=== PATIENT | female | born 1970 | race Caucasian/White ===

== ENCOUNTER 2017-11-21 12:01 | Observation (INO) ==
--- NOTE | 2017-11-21 12:31 | Emergency Department Note ---
Disposition Clinical Impression: Cerebrovascular accident Qualifiers: CVA mechanism: unspecified Qualified Code(s): I63.9 - Cerebral infarction, unspecified Disposition: Admitted As Inpatient Condition: Fair Forms: ED Satisfaction Letter Time of Disposition: 14:42 Neuro HPI - General Chief Complaint: ED Neuro Symptoms/Deficit Stated Complaint: LUE/L facial numbness/weakness (1113), dizzy, CP Time Seen by Provider: 11/21/17 12:22 Source: patient Mode of arrival: private vehicle Limitations: no limitations Nursing Notes Reviewed: Yes Vital Signs Reviewed: Yes - History of Present Illness HPI Narrative: Patient states symptoms started approximately 2 hours prior to arrival. She initially developed dizziness and then loss of hearing. One hour prior to arrival she developed left-sided weakness described as numbness and tingling affecting her left upper extremity and lower extremity and now her left face. No aphasia or dysarthria. No ataxia. No headache. She checked her blood pressure and it was 164/98. She has a history of hypertension but does not take antihypertensive medications Symptom Onset Unknown: Yes Location: left face, left arm, left leg History of same: No Quality: weakness, numbness, tingling Symptoms Improving: No Improves with: none Worsens with: none Context: sudden onset On Anticoagulants: No Associated symptoms: Reports: denies other symptoms Treatments Prior to Arrival: none - Related Data Home Medications: Previous Rx's Medication Instructions Recorded Levofloxacin [Levaquin] 500 mg PO DAILY #10 tablet 07/21/15 Allergies/Adverse Reactions: Allergies Allergy/AdvReac Type Severity Reaction Status Date / Time aspirin [ASA] AdvReac Nausea Verified 05/25/16 15:53 All systems ED: reviewed and negative except as stated. Constitutional: Reports: as per HPI Eyes: Reports: as per HPI ENT ED: Reports: as per HPI Cardiovascular: Reports: as per HPI Respiratory: Reports: as per HPI Gastrointestinal: Reports: as per HPI Genitourinary: Reports: as per HPI Musculoskeletal: Reports: as per HPI Integumentary: Reports: as per HPI Neurological: Reports: weakness, numbness, paresthesias, other (Loss of hearing , dizziness) Psychiatric: Reports: as per HPI Endocrine: Reports: as per HPI Hematological/Lymphatic: Reports: as per HPI Allergic/Immunologic: Reports: as per HPI Past Medical History - Past Medical History Source: patient Medical history: Reports: arthritis, asthma, fibromyalgia Psychiatric history: Reports: no psych history RESOURCE SPECIALIST history: Reports: no RESOURCE SPECIALIST history - Social History Smoking Status: Never smoker Smokeless Tobacco Status: No Alcohol use: Reports: none Drug use: Reports: none Physical Exam - General Limitations: no limitations General appearance: alert, in no apparent distress - Head Head exam: atraumatic - Eye Eye exam: Present: normal appearance, PERRL - ENT ENT exam: normal exam - Neck Neck exam: Present: normal inspection, full ROM - Chest Chest inspection: Present: normal inspection, symmetric chest wall rise - Respiratory Respiratory exam: Present: normal lung sounds bilaterally - Cardiovascular Cardiovascular exam: Present: normal rhythm, tachycardia, normal heart sounds - Rectal Exam Rectal exam: Present: deferred - Extremities Exam Extremities exam: Present: normal inspection - Neurological Exam Neurological exam: Present: alert, oriented X3, CN II-XII intact, other (No facial droop. Tongue midline. Speech fluent. No pronator drift. 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 No leg drift. NIH is 0) - Psychiatric Psychiatric exam: Present: normal affect, normal mood - Skin Skin exam: Present: warm, dry, intact Course Course Narrative: Patient presents with neurologic symptoms including left upper extremity and left lower extremity numbness tingling and weakness. Symptoms started 2 hours ago. NIH 0 per my exam. Stroke alert activated - Reevaluation(s) Reevaluation #1: CT head negative Reevaluation #2: Dr Cardona from [facility] telemedicine neurology has completed his consultation. He recommends against TPA. He recommends a CTA head and neck with admission to our facility should testing be negative. NIH score was 1 for numbness. Patient not a TPA candidate due to low NIH score Reevaluation #3: Patient resting comfortable. Test results discussed. No changes in neurologic exam. Vital Signs Temperature 98.3 F 11/21/17 12:03 Pulse Rate 100 11/21/17 12:03 Respiratory Rate 16 11/21/17 12:03 Blood Pressure 163/101 11/21/17 12:03 O2 Sat by Pulse Oximetry 100 11/21/17 12:03 Temperature 98.3 F 11/21/17 12:03 Pulse Rate 84 11/21/17 14:29 Respiratory Rate 18 11/21/17 14:29 Blood Pressure 143/84 11/21/17 14:29 O2 Sat by Pulse Oximetry 99 11/21/17 14:29 Oxygen Delivery Oxygen Delivery Room Air Neuro Symptoms/Deficit - Lab Data Lab results reviewed: Yes I reviewed the patient's lab results. Result diagrams: 11/21/17 12:43 11/21/17 12:43 Lab Results 11/21/17 11/21/17 11/21/17 Range/Units 12:07 12:43 12:43 WBC 6.4 (4.3-11.1) K/mcL RBC 4.44 (3.82-4.97) M/mcL Hgb 14.4 (11.5-15.4) g/dL Hct 40.1 (35.3-44.9) % MCV 90.3 (83.0-100.0) fL MCH 32.4 (28.0-33.3) pg MCHC 35.9 H (31.6-35.5) g/dL RDW 12.1 (11.5-14.5) % Plt Count 187 (140-400) K/mcL MPV 10.9 (9.4-12.4) fL Immature Gran % 0.3 (0-4) % Seg Neutrophils % 61.6 % Lymphocytes % 32.8 % Monocytes % 4.5 % Eosinophils % 0.6 % Basophils % 0.2 % Neutrophils # 4.0 (1.6-8.9) K/mcL Lymphocytes # 2.1 (0.6-4.6) K/mcL Monocytes # 0.3 (0.0-1.3) K/mcL Eosinophils # 0.0 (0.0-0.6) K/mcL Basophils # 0.0 (0.0-0.2) K/mcL PT 10.1 (9.4-12.1) Seconds INR 0.9 APTT 32.6 (26.0-36.0) Seconds Sodium (136-145) mEq/L Potassium (3.5-5.1) mEq/L Chloride (98-107) mEq/L Carbon Dioxide (23-29) mEq/L BUN (6-20) mg/dL Creatinine (0.60-1.20) mg/dL Est GFR ( Amer) (> 60) Est GFR (Non-Af Amer) (> 60) BUN/Creatinine Ratio (6-26) Glucose (70-105) mg/dL POC Glucose 94 (70-99) mg/dL Calculated Osmolality (280-300) Calcium (8.6-10.3) mg/dL Troponin I (< 0.04) ng/mL 11/21/17 Range/Units 12:43 WBC (4.3-11.1) K/mcL RBC (3.82-4.97) M/mcL Hgb (11.5-15.4) g/dL Hct (35.3-44.9) % MCV (83.0-100.0) fL MCH (28.0-33.3) pg MCHC (31.6-35.5) g/dL RDW (11.5-14.5) % Plt Count (140-400) K/mcL MPV (9.4-12.4) fL Immature Gran % (0-4) % Seg Neutrophils % % Lymphocytes % % Monocytes % % Eosinophils % % Basophils % % Neutrophils # (1.6-8.9) K/mcL Lymphocytes # (0.6-4.6) K/mcL Monocytes # (0.0-1.3) K/mcL Eosinophils # (0.0-0.6) K/mcL Basophils # (0.0-0.2) K/mcL PT (9.4-12.1) Seconds INR APTT (26.0-36.0) Seconds Sodium 141 (136-145) mEq/L Potassium 3.7 (3.5-5.1) mEq/L Chloride 106 (98-107) mEq/L Carbon Dioxide 23 (23-29) mEq/L BUN 13 (6-20) mg/dL Creatinine 0.75 (0.60-1.20) mg/dL Est GFR ( Amer) > 60 (> 60) Est GFR (Non-Af Amer) > 60 (> 60) BUN/Creatinine Ratio 17 (6-26) Glucose 93 (70-105) mg/dL POC Glucose (70-99) mg/dL Calculated Osmolality 292 (280-300) Calcium 8.9 (8.6-10.3) mg/dL Troponin I < 0.03 (< 0.04) ng/mL - Radiology Data Radiology results reviewed: Yes I reviewed the patient's radiology results. - EKG Data EKG attestation: Yes I reviewed and interpreted this EKG. EKG results narrative: Normal sinus rhythm rate 83 OH 106 QRS 88 QT/QTC 369/[address] segment elevation. Study compared to previous dated 05/25/16 TPA Checklist - Source Information Source: Patient - Eligibilty for IV tPA 1. LKW equal to or less than 4.5 hours be before treatment: Yes 2. Clinical diagnosis of ischemic stroke causing deficit: Yes 3. Age 18 years or older: Yes - Contraindications 4. Evidence of intracranial hemorrhage on pretreatment CT: No 5. Presentation suggests subarachnoid hem, even if CT normal: No 6. CT shows multilobar infarction: No 7. Known neoplasm, arteriovenous malformation, or aneurysm: No 8. Significant head trauma (w/ LOC) or CVA in last 3 months: No 9. BP elevated (systolic > 185 or diastolic > 110): No 10. Abnormal Blood Glucose (<50 or >400mg/dl): No 11. Active internal bleeding [PM.TPA15]: No 12. Known bleeding risk (including; not limited to 13-15): No 13. Heparin/argatroban/bivalirudin w/in 48hrs & PTT > normal: No 14. Platelet count less than 100,000/MM3: No 15. Current or recent use of anticoagualants (see protocol): No - Warnings/Precautions Considerations 16. Prior ischemic stroke within last 3 months: No 17. Recent history of intracranial hemorrhage: No 18. : No 19. Current/recent use Effient (7 days) or Brilinta (5 days): No 20. Arterial puncture at non compressible site or LP >7days: No 21. Major surgery or serious trauma in last 14 days: No 22. GI or urinary tract hemorrhage in last 21 days: No 23. KS involving left anterior myocardium in last 3 months: No 24. Suspected or known infective endocarditis/pericarditis: No - LKW: 3-4.5 hrs Add. Warnings/Precautions 21. oral anticoag other than warfarin regardles of last dose: No Patient/family understanding: The patient/family members have been counseled and understood the risk, benefit , and alternatives of treatment. Critical Care Time Critical Care Time: Yes Total Critical Care Time: 30 Attestation: The high probability of a clinically significant, sudden or life threatening deterioration of the [] system(s) required my full and direct attention, intervention and personal management. The aggregate critical care time was [] minutes. This time is in addition to time spent performing reported procedures but includes the following: [] Data Review and interpretation [] Patient assessment and monitoring of vital signs [] Documentation [] Medication orders and management
[2017-11-21] MEDS ORDERED: Alteplase (Activase) 6 MG in EMPTY BAG 1 EACH IVP ONE (12:46)
[2017-11-21] MEDS ORDERED: Alteplase 100 MG/100 mL Vial Pharmacy Waste ONE (12:46)
[2017-11-21] MEDS ORDERED: ALTEPLASE IVPB ONE (12:46)
[2017-11-21 12:55] LABS: Eosinophils % 0.6 %; Hematocrit 40.1 % (35.3-44.9); Hemoglobin 14.4 g/dL (11.5-15.4); Immature Granulocytes % 0.3 % (0-4); Lymphocytes % 32.8 %; Mean Corpuscular HGB Conc 35.9 g/dL (31.6-35.5); Mean Corpuscular Hemoglobin 32.4 pg (28.0-33.3); Mean Corpuscular Volume 90.3 fL (83.0-100.0); Mean Platelet Volume 10.9 fL (9.4-12.4); Monocytes % 4.5 %; Platelet Count 187 K/mcL (140-400); Red Blood Count 4.44 M/mcL (3.82-4.97); Red Cell Distribution Width 12.1 % (11.5-14.5); Segmented Neutrophils % 61.6 %
[2017-11-21 12:56] LABS: Basophils % 0.2 %; Lymphocytes # 2.1 K/mcL (0.6-4.6); Monocytes # 0.3 K/mcL (0.0-1.3)
[2017-11-21 13:04] LABS: INR 0.9; Prothrombin Time 10.1 Seconds (9.4-12.1)
[2017-11-21 13:07] LABS: Activated Partial Thrombo Time 32.6 Seconds (26.0-36.0)
[2017-11-21 13:26] LABS: Troponin I < 0.03 ng/mL (< 0.04)
[2017-11-21] MEDS ORDERED: Isovue-370 500 ML INFUS..BTL IV ONE (13:28)
[2017-11-21 13:52] LABS: BUN/Creatinine Ratio 17 (6-26); Blood Urea Nitrogen 13 mg/dL (6-20); Calcium 8.9 mg/dL (8.6-10.3); Carbon Dioxide 23 mEq/L (23-29); Chloride 106 mEq/L (98-107); Glucose 93 mg/dL (70-105); Osmolality,Calculated 292 (280-300); Potassium 3.7 mEq/L (3.5-5.1); Sodium 141 mEq/L (136-145); eGFR For African Americans > 60 (> 60); eGFR For Non-African Americans > 60 (> 60)
--- NOTE | 2017-11-21 22:10 | Internal Med History&Physical ---
<Elie Hsu - Last Filed: 11/22/17 00:19> Date of Encounter: 11/22/17 Time of Encounter: 08:15 Internal Medicine - H&P: HPI Chief complaint: left sided weakness/numbness Admitted From: Home Plans for Post Hospital Care: Home History of present illness: Ms. Jack is a 47 year old female w/ pmh of previouslyl high TSH untreated, high blood pressure presents with acute onset of left face, UE, and LE weakness , numbness, and tingling. 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 It felt like "a silent film". Within a minute she noticed, sudden onset of left sided wekness, numbness and tingling. She had her Blood pressure taken, and she recalled that it was ~160/105. Patient was recommended to come to [place] ED to be worked up for stroke. Patient was seen and examined around 8 pm, patient's symptoms had resolved besides mild tingling on her left side. Patient had not attempted to relieve symptoms, and denies exacerbating causes i.e movement, light, sound. Patient has associated chest heaviness that started when she was transferred from the ED to the floor. She states the pain is constant, is not relieved or worsened by taking deep breaths, position. Pain is not localized but is substernal. She has never had pain like this is the past. Patient does admit to having a lot of stress in her life recently, her son was hospitalized in the ICU at [facility] for new onset T1DM/DKA. Patients daniellehr also has T1DM. Patient a few months ago had a 40 lbs weight gain, and had an elevated TSH, and was about to be started on levothyroxine but had a second opinion from her PCP who instructed her not to start Rx. Patient has previously been told she has HTN but has not been treated for it. She was given a PRN medication which she has not taken in months. She could not recall what medication it was but thought it could be "clonidine or hydralazine". Patient has had peripheral neuropathy in her lower extremities for the last 5 years. Patient ddenies any other PMH. Patient denies leg swelling, fever, chills, night sweats, orthopnea, pnd, SOB on exertion, palpitations. Past Med Surg Social Fam HX - Past Medical History Medical history: arthritis, asthma, fibromyalgia Psychiatric history: no psych history - Social History Smoking Status: Never smoker Smokeless Tobacco Status: No Alcohol use: none Drug use: none Internal Medicine - H&P: Meds Albuterol Sulfate [Albuterol Inhaler] 1 - 2 puff IH Q4-6H PRN 11/21/17 [History] 3 Allergy/AdvReac Type Severity Reaction Status Date / Time aspirin [ASA] AdvReac Nausea Verified 05/25/16 15:53 All Systems PM: A 10-system review of systems was performed and is negative for pertinent findings except as documented above in the HPI. - Constitutional Constitutional: no chills, no fever(s), no falls, no night sweats - EENT Eyes: no change in vision, no discharge, no loss of peripheral vision, no loss of vision, no pain, no photophobia Ears: no ear discharge, no ear pain, no tinnitus Nose, mouth and throat: no dysphagia, no nasal discharge, no neck pain, no sore throat - Cardiovascular Cardiovascular ROS IM: no chest pain, no claudication, no diaphoresis, no dyspnea, no dyspnea on exertion, no edema, no irregular heart rhythm, no lightheadedness, no orthopnea, no palpitations, no paroxysmal nocturnal dyspnea , no syncope - Respiratory Respiratory: no cough, no dyspnea, no hemoptysis, no dyspnea on exertion, no wheezing, no snoring, no stridor, no pain on inspiration, no chest congestion, no excessive phlegm production, no change in phlegm color, no pain with cough - Gastrointestinal Gastrointestinal: no abdominal pain, no coffee ground emesis, no constipation, no cramping, no diarrhea, no hematemesis, no hematochezia, no melena, no nausea , no vomiting - Genitourinary Genitourinary: no change in urinary stream, no dysuria, no flank pain, no hematuria - Musculoskeletal Musculoskeletal ROS IM: no numbness, no tingling - Integumentary Integumentary IM: no rash, no unusual bruising - Neurological Neurological ROS: no confusion, no convulsions, no focal weakness, no numbness, no tingling, no tremor(s) - Hematologic/Lymphatic Hematologic/Lymphatic: no easy bruising - Constitutional Vitals: Temp Pulse Resp BP Pulse Ox 98.3 F 94 16 143/93 99 11/21/17 18:08 11/21/17 21:35 11/21/17 18:08 11/21/17 21:35 11/21/17 18:08 General appearance: Present: cooperative, A&O X 3, pleasant, no acute distress, answers questions appropriately - Head Head exam: Present: atraumatic, normocephalic - Eye Eye exam: Present: PERRL, conjuntiva pink, sclera anicteric Pupils: Present: PERRL - Neck Neck exam general surgery: Present: normal inspection, supple, trachea midline. Absent: lymphadenopathy, tenderness, nuchal rigidity, thyromegaly - Respiratory Respiratory exam: Present: CTAB. Absent: accessory muscle use, chest wall tenderness, decreased breath sounds, prolonged expiratory phase, rales, respiratory distress, rhonchi, stridor, wheezes - Cardiovascular Cardiovascular exam: Present: RRR. Absent: diastolic murmur, distant heart sounds, gallop, rubs, systolic murmur, tachycardia - GI/Abdominal GI/Abdominal exam: Present: normal bowel sounds, soft, no peritoneal signs. Absent: diminished bowel sounds, distended, firm, guarding, hernia, hepatomegaly , pulsatile mass, rebound, rigid, splenomegaly, tenderness - Extremities Exam Extremities exam: Present: warm, radial pulses palpable and symmetrical. Absent : calf tenderness, cyanotic, pedal edema - Neurological Exam Neurological exam: Present: alert, CN II-XII intact, oriented X3, reflexes normal, no focal deficits, strengths equal and symetr throughout. Absent: motor sensory deficit, pronater drift, facial droop, speech deficit - Skin Skin exam: Present: dry, intact Internal Med - H&P Results - Labs CBC & Chem 7: 11/21/17 12:43 11/21/17 12:43 - Assessment and plan (1) Left-sided weakness Current Visit: Yes Status: Acute Assessment and plan: Patient had stroke alert in ED. Neck CTA, head CTA, and Head CT came back negative. Stroke Alert physician believes patient could have had a TIA. symptoms resolved in ~6 hours. Will further workup for other causes. trop neg x1, glu WNL, bnp WNL, electrolytes WNL. ABCD2 score 5 - moderate risk for stroke. Continue NIHSS. - b12, CBC, CMP, Hba1c, TSH, lipids, - based off of ABCD2 score patient should have further workup of MRI and carotid U/S in the AM after further workup has returned. Consider consulting neuro - tele monitoring (2) Chest pain Current Visit: Yes Status: Acute Assessment and plan: trend trops, and ordered EKG Qualifiers: Qualified Code(s): R07.9 - Chest pain, unspecified (3) Hypothyroid Current Visit: Yes Status: Acute Assessment and plan: TSH came back ~9, starting levothyroxine. Qualifiers: Qualified Code(s): E03.9 - Hypothyroidism, unspecified - Time Spent With Patient Total time spent is greater than 50% in coordination of care (as documented) at patient's floor/unit and/or counseling patient: <Robert Marrero P - Last Filed: 11/22/17 07:52> Date of Encounter: 11/21/17 Time of Encounter: 21:00 Internal Medicine - H&P: HPI History of present illness: Ms. Jack is a 47 year old female All Systems PM: A 10-system review of systems was performed and is negative for pertinent findings except as documented above in the HPI. - Constitutional Vitals: Temp Pulse Resp BP Pulse Ox 98.1 F 73 13 122/80 97 11/22/17 06:53 11/22/17 06:53 11/22/17 06:53 11/22/17 06:53 11/22/17 06:53 Internal Med - H&P Results - Labs CBC & Chem 7: 11/22/17 06:59 11/22/17 06:59 Labs: Short CBC 11/22/17 Range/Units 06:59 WBC 4.7 (4.3-11.1) K/mcL Hgb 14.2 (11.5-15.4) g/dL Hct 41.0 (35.3-44.9) % Plt Count 184 (140-400) K/mcL Neutrophils # 2.5 (1.6-8.9) K/mcL BMP 11/22/17 06:59 Sodium 137 Potassium 3.8 Chloride 105 Carbon Dioxide 26 BUN 14 Creatinine 0.64 Glucose 105 Calcium 8.9 Cardiac Enzymes 11/22/17 Range/Units 06:59 Troponin I < 0.03 (< 0.04) ng/mL Liver Function 11/22/17 Range/Units 06:59 Total Bilirubin 0.6 (0.3-1.0) mg/dL AST 13 (13-39) Units/L ALT 8 (7-52) Units/L Alkaline Phosphatase 71 (34-104) Units/L Albumin 4.1 (3.5-5.7) g/dL - Attending Attestation I performed a history and physical examination of the patient on 11/21/17 and discussed his management with the resident. I reviewed the residents note and agree with the documented findings and plan of care. Briefly, patient admitted for CVA vs TIA. She presented with Left Side Numbness that started earlier today. Symptoms responded after transfer from ED. But now back with less intensity. She also has some chest pain. Questionable PMH of HTN, but no other risk factors. We will obtain MRI brain and carotid U/S and ECHO. We will allow permissive HTN. We will start aspirin 81 mg and lipitor. For chest pain, we will obtain repeat EKG and trend troponins. - Assessment and plan (1) Left-sided weakness Current Visit: Yes Status: Acute (2) Chest pain Current Visit: Yes Status: Acute Qualifiers: Qualified Code(s): R07.9 - Chest pain, unspecified (3) Hypothyroid Current Visit: Yes Status: Acute Qualifiers: Qualified Code(s): E03.9 - Hypothyroidism, unspecified - Time Spent With Patient Total time spent is greater than 50% in coordination of care (as documented) at patient's floor/unit and/or counseling patient:
[2017-11-21] MEDS ORDERED: Naloxone 0.4 MG/ML INJ IVP PRN (22:23)
[2017-11-21 23:03] LABS: Estimated Average Glucose 108 mg/dl; Hemoglobin A1C 5.4 %
[2017-11-21 23:14] LABS: Chol/HDL Ratio 4.3 (0-4.9)
[2017-11-21 23:26] LABS: Thyroid Stimulating Hormone 9.013 mcIU/mL (0.340-5.600)
[2017-11-22] MEDS ORDERED: Albuterol 2.5 MG/3 ML NEBULIZER IH PRN (06:17)
[2017-11-22 07:29] LABS: Basophils % 0.2 %; Eosinophils # 0.1 K/mcL (0.0-0.6); Eosinophils % 1.7 %; Hemoglobin 14.2 g/dL (11.5-15.4); Immature Granulocytes % 0.2 % (0-4); Lymphocytes # 1.8 K/mcL (0.6-4.6); Lymphocytes % 38.6 %; Mean Corpuscular HGB Conc 34.6 g/dL (31.6-35.5); Mean Corpuscular Hemoglobin 32.1 pg (28.0-33.3); Mean Corpuscular Volume 92.8 fL (83.0-100.0); Mean Platelet Volume 11.2 fL (9.4-12.4); Monocytes # 0.3 K/mcL (0.0-1.3); Monocytes % 6.8 %; Neutrophils # 2.5 K/mcL (1.6-8.9); Platelet Count 184 K/mcL (140-400); Red Blood Count 4.42 M/mcL (3.82-4.97); Red Cell Distribution Width 12.3 % (11.5-14.5); Segmented Neutrophils % 52.5 %
[2017-11-22 07:34] LABS: Prothrombin Time 10.8 Seconds (9.4-12.1)
[2017-11-22 07:37] LABS: Activated Partial Thrombo Time 32.2 Seconds (26.0-36.0)
[2017-11-22 07:46] LABS: Alanine Aminotransferase 8 Units/L (7-52); Albumin 4.1 g/dL (3.5-5.7); Albumin/Globulin Ratio 1.7 (1.1-2.2); Alkaline Phosphatase 71 Units/L (34-104); Aspartate Amino Transferase 13 Units/L (13-39); BUN/Creatinine Ratio 22 (6-26); Bilirubin,Total 0.6 mg/dL (0.3-1.0); Blood Urea Nitrogen 14 mg/dL (6-20); Calcium 8.9 mg/dL (8.6-10.3); Carbon Dioxide 26 mEq/L (23-29); Chloride 105 mEq/L (98-107); Globulin 2.4 g/dL (2.4-3.5); Glucose 105 mg/dL (70-105); Magnesium 1.8 mg/dL (1.6-2.6); Osmolality,Calculated 285 (280-300); Phosphorous 3.6 mg/dL (2.7-4.5); Potassium 3.8 mEq/L (3.5-5.1); Sodium 137 mEq/L (136-145); Total Protein 6.5 g/dL (6.4-8.9); eGFR For African Americans > 60 (> 60); eGFR For Non-African Americans > 60 (> 60)
--- NOTE | 2017-11-22 08:18 | Neurology - Consult Note ---
<JenAnyaSay - Last Filed: 11/22/17 08:28> Date of Encounter: 11/22/17 Time of Encounter: 08:13 Assessment and Plan (1) Left-sided weakness Status: Acute Only appreciable neurologic symptoms since presentation has been left-sided numbness. No weakness noted either by the ER physician or myself. CT of the head and CTA of the head and neck have been without acute findings. Carotid Doppler and MRI of the head are pending. Differential includes TIA, though suspicion is low considering few risk factors , vs. acephalgic migraine. Patient also notes significant stressors in her life, so a stress reaction is also a possibility. If doppler and MRI are negative, patient can be discharged from a neurologic standpoint and follow up with primary care physician. (2) Left sided numbness Status: Acute See plan of care above. History of Present Illness Chief complaint: left-sided weakness, sudden hearing loss HPI: Clarissa Jack is a 47 year old female with past medical history of asthma, fibromyalgia, prediabetes, celiac disease, and possible hypertension that presented after episode of dizziness, hearing loss, and left-sided weakness/ numbness. 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 She checked her BP at this time and found it to be approximately 170/95. Within an hour she started to develop left-sided weakness and numbness of both the upper and lower extremities and the face. She left work to drive herself to the ER. On presentation, NIH score was 1 for numbness, but there were no other physical exam findings. CT of the head was negative. [facility] neurology, via tele-stroke, recommended against TPA due to low NIH score. CTA of the head and neck was completed and was without acute findings. Patient states that all of her symptoms have since resolved. Currently, she denies any symptoms including headache, weakness, numbness, dizziness, hearing changes, and vision changes. Past Med Surg Social Fam HX - Past Medical History Medical history: arthritis, asthma, fibromyalgia Psychiatric history: no psych history - Social History Smoking Status: Never smoker Smokeless Tobacco Status: No Alcohol use: none Drug use: none Medications and Allergies Albuterol Sulfate [Albuterol Inhaler] 1 - 2 puff IH Q4-6H PRN 11/21/17 [History] Metoprolol [Lopressor] 12.5 mg PO BID #60 tablet 11/22/17 [Rx] 3 Allergy/AdvReac Type Severity Reaction Status Date / Time aspirin [ASA] AdvReac Nausea Verified 05/25/16 15:53 All Systems: The remainder of the systems were reviewed and are negative Review of Systems: 10 point review of systems was completed and negative except as noted in the HPI. Physical Examination - Vital Signs Vital Signs: Initial Vital Signs Temp Pulse Resp BP Pulse Ox 98.3 F 100 16 163/101 100 11/21/17 12:03 11/21/17 12:03 11/21/17 12:03 11/21/17 12:03 11/21/17 12:03 - Exam Exam: CONSTITUTIONAL: Well-developed and well-nourished. Comfortable and in no acute distress. Eating breakfast at time of exam. CARDIOVASCULAR: Regular rate and rhythm. +S1 and S2. CHEST: Normal work of breathing. NEURO: Mental Status: Alert and oriented x3. Follows commands and answers questions. Cranial Nerves: PERRL. EOMI. Visual rodrigez intact. Symmetrical facial strength. Facial sensation intact. No dysarthria. Hearing intact. Soft palate elevates symmetrically. SCM and trapezius without weakness. Tongue protrudes in midline. Motor: Left - 5/5 in upper and lower extremities. R - 5/5 in upper and lower extremities. Sensation intact. Cerebellar function intact to [id number]. Results - Laboratory Findings CBC and BMP: 11/22/17 06:59 11/22/17 06:59 Abnormal lab findings: Abnormal lab results LDL Cholesterol, Calc 120 mg/dL (0-99) H 11/21/17 12:43 TSH 9.013 mcIU/mL (0.340-5.600) H 11/21/17 12:43 Consult Discharge Plan - Plan Instructions: Chest Pain (DC) Referrals: Tay Contreras MD [Primary Care Provider] - 11/30/17 1:00 pm (Please follow up as schedule...) Prescriptions: Metoprolol [Lopressor] 12.5 mg PO BID #60 tablet <Sam Perez - Last Filed: 11/22/17 16:48> Date of Encounter: 11/22/17 Time of Encounter: 16:41 Assessment and Plan (1) Left sided numbness Status: Acute (2) Left-sided weakness Status: Acute At tis juncture there is no evidence to support an acute cerebral infarct or TIA. She has had a CT scan of the head which was negative CTA of the head and neck were both negative and MRI scan of the brain was normal as well. She had a similar event back in 2009, at which time she presented with left-sided numbness and vision changes. This could however represent complicated migraine. However this point patient is wishing to be discharged. I will reevaluate her at your request. History of Present Illness HPI: The chart was reviewed, the patient was seen and examined independently. I agree with Dr. Li's assessment as stated above. She did have an MRI scan of the brain completed which was negative for any evidence of a vascular event. All Systems: The remainder of the systems were reviewed and are negative Review of Systems: The balance of the systems review is negative. Physical Examination - Vital Signs Vital Signs: Initial Vital Signs Temp Pulse Resp BP Pulse Ox 98.3 F 100 16 163/101 100 11/21/17 12:03 11/21/17 12:03 11/21/17 12:03 11/21/17 12:03 11/21/17 12:03 - Neurologic Detailed motor examination: full strength in all major muscle groups Motor examination - right side: 5/5: deltoids, biceps, triceps, wrist flexion, wrist extension, corporate relations manager, hip flexors, tibialis Anterior, quadriceps, toe extension (EHL), plantarflexion Motor examination - left side: 5/5: deltoids, biceps, triceps, wrist flexion, wrist extension, hip flexors, corporate relations manager, quadriceps, tibialis Anterior, toe extension (EHL), plantarflexion Mental Status Examination: awake, alert, oriented to person, oriented to place, oriented to time, follows commands appropriately, answers questions appropriately, no agnosia, no aphasia, no aproxia Cranial nerve examination: PERRL, EOMI, visual rodrigez intact, corneal reflexes brisk symmetrically, sensory to face intact, mastication intact, no facial asymmetry is present, no dysarthria, hearing is intact symmetrically, soft palate elevates bilaterally upon phonation, gag reflex intact, flexes SCM and trapezius muscles symmetrically with full power, tongue protrudes midline, no atrophy or facial fasiculations present Cerebellar examination: no dysmetria, performs finger to nose and heel to nelson symmetrically without ataxia, no gait ataxia, no truncal ataxia, no difficulty with rapid alternating movements Results - Laboratory Findings CBC and BMP: 11/22/17 06:59 11/22/17 06:59 Abnormal lab findings: Abnormal lab results LDL Cholesterol, Calc 120 mg/dL (0-99) H 11/21/17 12:43 TSH 9.013 mcIU/mL (0.340-5.600) H 11/21/17 12:43
--- NOTE | 2017-11-22 08:42 | Electrocardiograph Report ---
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
[2017-11-22] MEDS ORDERED: Aspirin Enteric Coated 81 MG Tablet PO SCH (09:00)
[2017-11-22 11:31] VITALS: BP 129/88
[2017-11-22 14:10] LABS: Triiodothyronine (T3) Free 3.54 pg/mL (2.50-3.90)
[2017-11-22 14:15] LABS: Triiodothyronine (T3) Total 1.15 ng/mL (0.87-1.78)
--- NOTE | 2017-11-22 15:06 | Discharge Summary ---
- NOTES TO OUTPATIENT PROVIDER Notes to Outpatient Provider: f/u with PCP in one week. If tolerates plase start taking Aspirin 81mg pO Daily as preventive medication. Need to check TSH in 4-6 weeks. Your cholesterol is slightly elevated LDL @ 120, recommend diet modifications and life style changes Date of Encounter: 11/22/17 Time of Encounter: 15:04 - Discharge Diagnosis (1) TIA (transient ischemic attack) Priority: Secondary Status: Acute Qualifiers: Transient cerebral ischemia type: unspecified Qualified Code(s): G45.9 - Transient cerebral ischemic attack, unspecified (2) Left-sided weakness Priority: Primary Status: Acute (3) Chest pain Priority: Secondary Status: Acute Qualifiers: Qualified Code(s): R07.9 - Chest pain, unspecified (4) Hypothyroid Priority: Secondary Status: Acute Qualifiers: Qualified Code(s): E03.9 - Hypothyroidism, unspecified Hospital course: Ms. Clarissa Jack is a 47 year old female with past medical history of asthma, fibromyalgia, prediabetes, celiac disease, and possible hypertension that presented after episode of dizziness, hearing loss, and left-sided weakness/ numbness. 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 She checked her BP at this time and found it to be approximately 170/95. Within an hour she started to develop left-sided weakness and numbness of both the upper and lower extremities and the face. She left work to drive herself to the ER. On presentation, NIH score was 1 for numbness, but there were no other physical exam findings. CT of the head was negative. [facility] neurology, via tele-stroke, recommended against TPA due to low NIH score. CTA of the head and neck was completed and was without acute findings. Pt was admitted in the hospital and placed her on indirect sales exec. No acute EKG changes noticed. She was evaluated by Neurologist today. Her MRI of brain comes back as negative for CVA. Her symptoms seems to be due to atypical migraine vs TIA. I recommend her to start on baby ASA 81mg, she stated she was allergic to ASA but do not know exactly what kind of allregic reaction she had. Her TSH slightly elevated @ 9.0, however her Free T3 and T4 levels are WNL, so did not recommend any medication now. Recommned to f/u with PCP . Regarding her BP barnhart, started her on low dose Metoprolol. - Time Spent with Patient Total time spent providing and/or coordinating discharge services: - Discharge Medications Prescriptions: Metoprolol [Lopressor] 12.5 mg PO BID #60 tablet Home Medications: Albuterol Sulfate [Albuterol Inhaler] 1 - 2 puff IH Q4-6H PRN 11/21/17 [History] Metoprolol [Lopressor] 12.5 mg PO BID #60 tablet 11/22/17 [Rx] Allergies/Adverse Reactions: 3 Allergy/AdvReac Type Severity Reaction Status Date / Time aspirin [ASA] AdvReac Nausea Verified 05/25/16 15:53 Date of admission: 11/21/17 22:23 Primary care physician: Tay Contreras MD - Constitutional Vitals: Temp Pulse Resp BP Pulse Ox 98.3 F 91 14 129/88 98 11/22/17 11:23 11/22/17 11:23 11/22/17 11:23 11/22/17 11:23 11/22/17 11:23 General appearance: Present: cooperative, A&O X 3, pleasant, no acute distress, answers questions appropriately - Head Head exam: Present: atraumatic, normal inspection - Neck Neck exam general surgery: Present: supple - Respiratory Respiratory exam: Absent: respiratory distress, rhonchi, wheezes - Cardiovascular Cardiovascular exam: Present: RRR, +S1, +S2. Absent: tachycardia - GI/Abdominal GI/Abdominal exam: Present: normal bowel sounds, soft. Absent: rebound, rigid, tenderness - Back Exam Back exam: Absent: CVA tenderness (L), CVA tenderness (R) - Neurological Exam Neurological exam: Present: alert, CN II-XII intact, normal gait, oriented X3, reflexes normal, no focal deficits - Patient Status Disposition: Home, Self-Care Condition: Good Overall status at discharge: patient is back to baseline - Discharge Instructions Follow Up With: Tay Contreras MD [Primary Care Provider] - 11/30/17 1:00 pm (Please follow up as schedule...) - Diet and Activity Activity: increase activity as tolerated Diet: low salt diet - VTE Documentation of Mechanical Device: Intermittent pneumatic compression device
--- NOTE | 2017-11-22 16:11 | Electrocardiograph Report ---
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
[2017-11-23] MEDS ORDERED: Levothyroxine 25 MCG TABLET PO SCH (06:30)
== END 2017-11-22 16:13 | disposition home or self-care (01) ==
LOC: EMEROO 12:01 → 2ANU 12:01
PROVIDERS: ADMIT General Practice; ATTEND General Practice

== ENCOUNTER 2018-05-04 15:22 | Observation (INO) ==
[2018-05-04 16:30] LABS: Basophils % 0.2 %; Eosinophils # 0.1 K/mcL (0.0-0.6); Eosinophils % 1.1 %; Hematocrit 40.4 % (35.3-44.9); Hemoglobin 13.8 g/dL (11.5-15.4); Immature Granulocytes % 0.2 % (0-4); Lymphocytes # 2.5 K/mcL (0.6-4.6); Lymphocytes % 40.2 %; Mean Corpuscular HGB Conc 34.2 g/dL (31.6-35.5); Mean Corpuscular Hemoglobin 31.1 pg (28.0-33.3); Mean Platelet Volume 11.1 fL (9.4-12.4); Monocytes # 0.4 K/mcL (0.0-1.3); Monocytes % 5.8 %; Neutrophils # 3.3 K/mcL (1.6-8.9); Platelet Count 212 K/mcL (140-400); Red Blood Count 4.44 M/mcL (3.82-4.97); Red Cell Distribution Width 12.6 % (11.5-14.5); Segmented Neutrophils % 52.5 %
[2018-05-04 16:51] LABS: Troponin I < 0.03 ng/mL (< 0.04)
[2018-05-04 16:54] LABS: BUN/Creatinine Ratio 15 (6-26); Blood Urea Nitrogen 13 mg/dL (6-20); Calcium 9.1 mg/dL (8.6-10.3); Carbon Dioxide 28 mEq/L (23-29); Chloride 104 mEq/L (98-107); Glucose 97 mg/dL (70-105); Osmolality,Calculated 290 (280-300); Sodium 140 mEq/L (136-145); eGFR For Non-African Americans > 60 (> 60)
[2018-05-04 17:22] LABS: Bilirubin,Urine Negative (Negative); Blood,Urine Negative (Negative); Clarity,Urine Clear (Clear); Color,Urine Yellow (Yellow); Glucose,Urine (UA) Normal (Normal); Ketones,Urine Negative (Negative); Leukocyte Esterase,Urine Moderate (Negative); Nitrite,Urine Negative (Negative); PH,Urine 6.5 pH Units (5.0-8.0); Protein,Urine Negative (Neg-Trace); Specific Gravity,Urine 1.005 (1.010-1.025); Urobilinogen,Urine Normal (Normal)
[2018-05-04 17:25] LABS: Bacteria,Urine None Seen per hpf (None-Few); Hyaline Casts,Urine None Seen per lpf (None-Few); RBC,Urine 0-3 per hpf (0-3); Squamous Epithelial Cell,Urine Many per lpf (None-Few)
[2018-05-04 17:56] LABS: Thyroid Stimulating Hormone 9.135 mcIU/mL (0.340-5.600)
[2018-05-04] MEDS: Nitroglycerin 0.4 MG TAB.SUBL SL PRN ×2 (18:05→18:24)
--- NOTE | 2018-05-04 19:38 | Emergency Department Note ---
Disposition Clinical Impression: Arm paresthesia, left, Paresthesia of left leg Chest pain Qualifiers: Chest pain type: unspecified Qualified Code(s): R07.9 - Chest pain, unspecified Disposition: Admitted As Inpatient Condition: Fair Referrals: Tay Contreras MD [Primary Care Provider] - Forms: ED Satisfaction Letter, Work/School Release General Adult HPI - General Chief complaint: ED General Medical Stated complaint: ELevated BP/CP Time Seen by Provider: 05/04/18 15:51 Source: patient Mode of arrival: private vehicle Limitations: no limitations Nursing Notes Reviewed: Yes Vital Signs Reviewed: Yes - History of Present Illness HPI Narrative: 47-year-old female history of "mini TIA" in November, hypertension, hyperlipidemia who presents to the ER with multiple complaints. States that she has had symptoms off and on for a week. Today she had chest pain and noticed that her b lood pressure was elevated at work. Also states that she had numbness in her left leg and that went up into her left arm and then over into her right chest and then on the right side of her body. States that this feels like the TIA before. She states that she felt confused this morning. She denies any head injury. She is not on any antiplatelet or anticoagulation medications. No other complaints. Pt Subjective Complaint: Elevated blood pressure, chest pain, numbness Onset (ago): day(s) Location: head, chest Pain Scale: 4 Improves with: nothing Worsens with: nothing Associated symptoms: Reports: chest pain Treatments Prior to Arrival: none - Related Data Home Medications Medication Instructions Recorded Confirmed Atorvastatin Calcium [Lipitor] 20 mg PO QPM 05/04/18 05/04/18 Metoprolol [Lopressor] 25 mg PO BID 05/04/18 05/04/18 Allergies Allergy/AdvReac Type Severity Reaction Status Date / Time Diclofenac Allergy Vomiting Verified 05/04/18 15:39 aspirin [ASA] AdvReac Nausea Verified 05/04/18 15:39 All systems ED: reviewed and negative except as stated. Cardiovascular: Reports: chest pain Respiratory: Reports: dyspnea Gastrointestinal: Denies: abdominal pain Neurological: Reports: headache, weakness, paresthesias Past Medical History - Past Medical History Attestation: Yes The following information was validated with the patient. 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 - Social History Smoking Status: Never smoker Smokeless Tobacco Status: No Alcohol use: Reports: none Drug use: Reports: none Physical Exam - General Limitations: no limitations General appearance: alert, in no apparent distress - Head Head exam: atraumatic, normocephalic, normal inspection - Eye Eye exam: Present: normal appearance, PERRL, EOMI - ENT ENT exam: normal exam - Neck Neck exam: Present: normal inspection, full ROM - Chest Chest inspection: Present: normal inspection, symmetric chest wall rise - Respiratory Respiratory exam: Present: normal lung sounds bilaterally - Cardiovascular Cardiovascular exam: Present: regular rate, normal rhythm, normal heart sounds - Abdominal Exam Abdominal exam: Present: soft, Non-Tender. Absent: tenderness, distention, rigidity - Extremities Exam Extremities exam: Present: normal inspection, full ROM - Expanded Upper Extremity Exam Shoulder exam: Present: normal inspection, full ROM Arm exam: Present: normal inspection, full ROM Elbow exam: Present: normal inspection, full ROM Forearm/Wrist exam: Present: normal inspection, full ROM Hand exam: Present: normal inspection, full ROM Vascular exam: Normal: radial pulse - Expanded Lower Extremity Exam Hip/Pelvis exam: Present: normal inspection, full ROM Upper leg exam: Present: normal inspection, full ROM Knee exam: Present: normal inspection, full ROM Lower leg exam: Present: normal inspection, full ROM Ankle exam: Present: normal inspection, full ROM Foot/toe exam: Present: normal inspection, full ROM - Neurological Exam Neurological exam: Present: alert, CN II-XII intact - Expanded Neurological Exam Speech: Present: fluid speech Cranial nerves: EOM function (II, III, IV, ): Normal, facial sensation (V): Normal, spinal accessory function (XI): Normal, tongue deviation (XII): Normal Motor strength - LUE: 5/5 Motor strength - RUE: 5/5 Motor strength - LLE: 5/5 Motor strength - RLE: 5/5 Sensory exam upper extremity: light touch: Abnormal Left Sensory exam lower extremity: light touch: Abnormal Left Coma Scale Eye Opening: Spontaneous Coma Scale Motor Response: Obeys Commands Coma Scale Verbal Response: Oriented Coma Scale Total: 15 - Skin Skin exam: Present: warm, dry Course Course Narrative: Patient seen and examined. Vital signs reviewed. Plan for EKG, chest x-ray, head CT, labs. Her symptoms seem to mimic her prior TIA. She does have symptoms in all 4 extremities which is an odd presentation all her she says it is worse on the left which was her prior symptoms. Patient to be admitted for neurologic workup. - Reevaluation(s) Reevaluation #1: Patient reports chest pain-free with 2 nitroglycerin. Discussed results of imaging and labs. Agreeable with admission. Vital Signs Temperature 98.3 F 05/04/18 15:39 Pulse Rate 72 05/04/18 15:39 Respiratory Rate 18 05/04/18 15:39 Blood Pressure 161/97 05/04/18 15:39 O2 Sat by Pulse Oximetry 98 05/04/18 15:39 Temperature 98.3 F 05/04/18 16:47 Pulse Rate 70 05/04/18 16:52 Respiratory Rate 16 05/04/18 16:52 Blood Pressure 146/96 05/04/18 16:52 O2 Sat by Pulse Oximetry 72 05/04/18 16:52 Oxygen Delivery Oxygen Delivery Room Air Medical Decision Making - MDM Narrative Medical decision making narrative: 47-year-old female presenting with left-sided tingling as well as chest pain. She is well-appearing here. Only deficit is subjective paresthesias to the left upper and lower extremities. EKG is sinus. Labs are grossly unremarkable. Pain resolved with nitroglycerin glycerin. Patient is admitted for further workup. - Lab Data Lab results reviewed: Yes I reviewed the patient's lab results. Result diagrams: 05/04/18 16:09 05/04/18 16:09 Lab Results 05/04/18 05/04/18 05/04/18 Range/Units 16:09 16:09 17:07 WBC 6.2 (4.3-11.1) K/mcL RBC 4.44 (3.82-4.97) M/mcL Hgb 13.8 (11.5-15.4) g/dL Hct 40.4 (35.3-44.9) % MCV 91.0 (83.0-100.0) fL MCH 31.1 (28.0-33.3) pg MCHC 34.2 (31.6-35.5) g/dL RDW 12.6 (11.5-14.5) % Plt Count 212 (140-400) K/mcL MPV 11.1 (9.4-12.4) fL Immature Gran % 0.2 (0-4) % Seg Neutrophils % 52.5 % Lymphocytes % 40.2 % Monocytes % 5.8 % Eosinophils % 1.1 % Basophils % 0.2 % Neutrophils # 3.3 (1.6-8.9) K/mcL Lymphocytes # 2.5 (0.6-4.6) K/mcL Monocytes # 0.4 (0.0-1.3) K/mcL Eosinophils # 0.1 (0.0-0.6) K/mcL Basophils # 0.0 (0.0-0.2) K/mcL Sodium 140 (136-145) mEq/L Potassium 4.0 (3.5-5.1) mEq/L Chloride 104 (98-107) mEq/L Carbon Dioxide 28 (23-29) mEq/L BUN 13 (6-20) mg/dL Creatinine 0.84 (0.60-1.20) mg/dL Est GFR ( Amer) > 60 (> 60) Est GFR (Non-Af Amer) > 60 (> 60) BUN/Creatinine Ratio 15 (6-26) Glucose 97 (70-105) mg/dL Calculated Osmolality 290 (280-300) Calcium 9.1 (8.6-10.3) mg/dL Troponin I < 0.03 (< 0.04) ng/mL TSH 9.135 H (0.340-5.600) mcIU/mL Urine Color Yellow (Yellow) Urine Clarity Clear (Clear) Urine pH 6.5 (5.0-8.0) pH Units Ur Specific [place] 1.005 L (1.010-1.025) Urine Protein Negative (Neg-Trace) mg/dL Urine Glucose (UA) Normal (Normal) mg/dL Urine Ketones Negative (Negative) mg/dL Urine Blood Negative (Negative) Urine Nitrite Negative (Negative) Urine Bilirubin Negative (Negative) Urine Urobilinogen Normal (Normal) mg/dL Ur Leukocyte Esterase Moderate H (Negative) Urine Microscopic RBC 0-3 (0-3) per hpf Urine Microscopic WBC 3-5 H (0-3) per hpf Ur Squamous Epith Cells Many H (None-Few) per lpf Urine Bacteria None Seen (None-Few) per hpf Hyaline Casts None Seen (None-Few) per lpf Ur Culture Indicated? NO. A (NO) Urine Test (Negative) 05/04/18 Range/Units 17:07 WBC (4.3-11.1) K/mcL RBC (3.82-4.97) M/mcL Hgb (11.5-15.4) g/dL Hct (35.3-44.9) % MCV (83.0-100.0) fL MCH (28.0-33.3) pg MCHC (31.6-35.5) g/dL RDW (11.5-14.5) % Plt Count (140-400) K/mcL MPV (9.4-12.4) fL Immature Gran % (0-4) % Seg Neutrophils % % Lymphocytes % % Monocytes % % Eosinophils % % Basophils % % Neutrophils # (1.6-8.9) K/mcL Lymphocytes # (0.6-4.6) K/mcL Monocytes # (0.0-1.3) K/mcL Eosinophils # (0.0-0.6) K/mcL Basophils # (0.0-0.2) K/mcL Sodium (136-145) mEq/L Potassium (3.5-5.1) mEq/L Chloride (98-107) mEq/L Carbon Dioxide (23-29) mEq/L BUN (6-20) mg/dL Creatinine (0.60-1.20) mg/dL Est GFR ( Amer) (> 60) Est GFR (Non-Af Amer) (> 60) BUN/Creatinine Ratio (6-26) Glucose (70-105) mg/dL Calculated Osmolality (280-300) Calcium (8.6-10.3) mg/dL Troponin I (< 0.04) ng/mL TSH (0.340-5.600) mcIU/mL Urine Color (Yellow) Urine Clarity (Clear) Urine pH (5.0-8.0) pH Units Ur Specific [place] (1.010-1.025) Urine Protein (Neg-Trace) mg/dL Urine Glucose (UA) (Normal) mg/dL Urine Ketones (Negative) mg/dL Urine Blood (Negative) Urine Nitrite (Negative) Urine Bilirubin (Negative) Urine Urobilinogen (Normal) mg/dL Ur Leukocyte Esterase (Negative) Urine Microscopic RBC (0-3) per hpf Urine Microscopic WBC (0-3) per hpf Ur Squamous Epith Cells (None-Few) per lpf Urine Bacteria (None-Few) per hpf Hyaline Casts (None-Few) per lpf Ur Culture Indicated? (NO) Urine Test Negative (Negative) - Radiology Data Radiology results reviewed: Yes I reviewed the patient's radiology results. Chest X-Ray 05/04/18 15:52 IMPRESSION: No acute findings. D/ / 05/04/2018 16:20:46 Ramon Brar MD / barb Interpreting Provider: Ramon Brar MD Head CT 05/04/18 16:17 IMPRESSION: No acute intracranial abnormality. D/ / Jaime Lopez MD / Jaime Lopez MD Interpreting Provider: Jaime Lopez MD - EKG Data EKG #1 EKG attestation: Yes I reviewed and interpreted this EKG. EKG results narrative: EKG demonstrates sinus rhythm with rate of 76 bpm. Normal axis. Normal intervals. Normal R-wave progression. No gross ST elevations or depressions. No acute ischemic findings. S.B.A.RJuanjose - [place] Situation: Demographics, MOA Background: Presenting Complaint, Relevant PMH, Meds, & Allergies Assessment: Course and respsone to treatment, Exam Concerns, Patient/Family Expectation, Pertinant Lab Results Recommendation: Barrier(s) to disposition, Recommendation based on pending studies, treatments, or consults S.B.A.RJuanjose Report Given to: Dr. Mateo Pichardo Repor Time: 19:27 Attestation Statement - Attestation Attestation: I, Claudio Carrillo DO, examined this patient [id number] and my medical decision-making was reviewed with Dr. Yung Baird, Resident Physician. I agree with the documented findings, disposition and treatment plan as described except to the extent set forth below. Please see my progress notes for details.
--- NOTE | 2018-05-04 19:40 | Emergency Department Note ---
Disposition Clinical Impression: Arm paresthesia, left, Paresthesia of left leg Chest pain Qualifiers: Chest pain type: unspecified Qualified Code(s): R07.9 - Chest pain, unspecified Disposition: Admitted As Inpatient Condition: Fair Time of Disposition: 19:38 General Adult HPI - General Chief complaint: ED General Medical Stated complaint: ELevated BP/CP Time Seen by Provider: 05/04/18 15:51 Source: patient Mode of arrival: private vehicle Limitations: no limitations - History of Present Illness Location: head, chest Pain Scale: 4 Improves with: nothing Worsens with: nothing Associated symptoms: Reports: chest pain Treatments Prior to Arrival: none - Related Data Home Medications Medication Instructions Recorded Confirmed Atorvastatin Calcium [Lipitor] 20 mg PO QPM 05/04/18 05/04/18 Metoprolol [Lopressor] 25 mg PO BID 05/04/18 05/04/18 Allergies Allergy/AdvReac Type Severity Reaction Status Date / Time Diclofenac Allergy Vomiting Verified 05/04/18 15:39 aspirin [ASA] AdvReac Nausea Verified 05/04/18 15:39 Cardiovascular: Reports: chest pain Respiratory: Reports: dyspnea Gastrointestinal: Denies: abdominal pain Neurological: Reports: headache, weakness, paresthesias Past Medical History - Past Medical History Medical history: Reports: arthritis, asthma, fibromyalgia, TIA Surgical history: Reports: Psychiatric history: Reports: no psych history 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: Reports: 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 - Social History Smoking Status: Never smoker Smokeless Tobacco Status: No Alcohol use: Reports: none Drug use: Reports: none Physical Exam - General Limitations: no limitations General appearance: alert, in no apparent distress Course Vital Signs Temperature 98.3 F 05/04/18 15:39 Pulse Rate 72 05/04/18 15:39 Respiratory Rate 18 05/04/18 15:39 Blood Pressure 161/97 05/04/18 15:39 O2 Sat by Pulse Oximetry 98 05/04/18 15:39 Temperature 98.3 F 05/04/18 16:47 Pulse Rate 70 05/04/18 16:52 Respiratory Rate 16 05/04/18 16:52 Blood Pressure 146/96 05/04/18 16:52 O2 Sat by Pulse Oximetry 72 05/04/18 16:52 Oxygen Delivery Oxygen Delivery Room Air Medical Decision Making - Lab Data Result diagrams: 05/04/18 16:09 05/04/18 16:09 Lab Results 05/04/18 05/04/18 05/04/18 Range/Units 16:09 16:09 17:07 WBC 6.2 (4.3-11.1) K/mcL RBC 4.44 (3.82-4.97) M/mcL Hgb 13.8 (11.5-15.4) g/dL Hct 40.4 (35.3-44.9) % MCV 91.0 (83.0-100.0) fL MCH 31.1 (28.0-33.3) pg MCHC 34.2 (31.6-35.5) g/dL RDW 12.6 (11.5-14.5) % Plt Count 212 (140-400) K/mcL MPV 11.1 (9.4-12.4) fL Immature Gran % 0.2 (0-4) % Seg Neutrophils % 52.5 % Lymphocytes % 40.2 % Monocytes % 5.8 % Eosinophils % 1.1 % Basophils % 0.2 % Neutrophils # 3.3 (1.6-8.9) K/mcL Lymphocytes # 2.5 (0.6-4.6) K/mcL Monocytes # 0.4 (0.0-1.3) K/mcL Eosinophils # 0.1 (0.0-0.6) K/mcL Basophils # 0.0 (0.0-0.2) K/mcL Sodium 140 (136-145) mEq/L Potassium 4.0 (3.5-5.1) mEq/L Chloride 104 (98-107) mEq/L Carbon Dioxide 28 (23-29) mEq/L BUN 13 (6-20) mg/dL Creatinine 0.84 (0.60-1.20) mg/dL Est GFR ( Amer) > 60 (> 60) Est GFR (Non-Af Amer) > 60 (> 60) BUN/Creatinine Ratio 15 (6-26) Glucose 97 (70-105) mg/dL Calculated Osmolality 290 (280-300) Calcium 9.1 (8.6-10.3) mg/dL Troponin I < 0.03 (< 0.04) ng/mL TSH 9.135 H (0.340-5.600) mcIU/mL Urine Color Yellow (Yellow) Urine Clarity Clear (Clear) Urine pH 6.5 (5.0-8.0) pH Units Ur Specific [place] 1.005 L (1.010-1.025) Urine Protein Negative (Neg-Trace) mg/dL Urine Glucose (UA) Normal (Normal) mg/dL Urine Ketones Negative (Negative) mg/dL Urine Blood Negative (Negative) Urine Nitrite Negative (Negative) Urine Bilirubin Negative (Negative) Urine Urobilinogen Normal (Normal) mg/dL Ur Leukocyte Esterase Moderate H (Negative) Urine Microscopic RBC 0-3 (0-3) per hpf Urine Microscopic WBC 3-5 H (0-3) per hpf Ur Squamous Epith Cells Many H (None-Few) per lpf Urine Bacteria None Seen (None-Few) per hpf Hyaline Casts None Seen (None-Few) per lpf Ur Culture Indicated? NO. A (NO) Urine Test (Negative) 05/04/18 Range/Units 17:07 WBC (4.3-11.1) K/mcL RBC (3.82-4.97) M/mcL Hgb (11.5-15.4) g/dL Hct (35.3-44.9) % MCV (83.0-100.0) fL MCH (28.0-33.3) pg MCHC (31.6-35.5) g/dL RDW (11.5-14.5) % Plt Count (140-400) K/mcL MPV (9.4-12.4) fL Immature Gran % (0-4) % Seg Neutrophils % % Lymphocytes % % Monocytes % % Eosinophils % % Basophils % % Neutrophils # (1.6-8.9) K/mcL Lymphocytes # (0.6-4.6) K/mcL Monocytes # (0.0-1.3) K/mcL Eosinophils # (0.0-0.6) K/mcL Basophils # (0.0-0.2) K/mcL Sodium (136-145) mEq/L Potassium (3.5-5.1) mEq/L Chloride (98-107) mEq/L Carbon Dioxide (23-29) mEq/L BUN (6-20) mg/dL Creatinine (0.60-1.20) mg/dL Est GFR ( Amer) (> 60) Est GFR (Non-Af Amer) (> 60) BUN/Creatinine Ratio (6-26) Glucose (70-105) mg/dL Calculated Osmolality (280-300) Calcium (8.6-10.3) mg/dL Troponin I (< 0.04) ng/mL TSH (0.340-5.600) mcIU/mL Urine Color (Yellow) Urine Clarity (Clear) Urine pH (5.0-8.0) pH Units Ur Specific [place] (1.010-1.025) Urine Protein (Neg-Trace) mg/dL Urine Glucose (UA) (Normal) mg/dL Urine Ketones (Negative) mg/dL Urine Blood (Negative) Urine Nitrite (Negative) Urine Bilirubin (Negative) Urine Urobilinogen (Normal) mg/dL Ur Leukocyte Esterase (Negative) Urine Microscopic RBC (0-3) per hpf Urine Microscopic WBC (0-3) per hpf Ur Squamous Epith Cells (None-Few) per lpf Urine Bacteria (None-Few) per hpf Hyaline Casts (None-Few) per lpf Ur Culture Indicated? (NO) Urine Test Negative (Negative) Attestation Statement - Attestation Attestation: I, Claudio Carrillo DO, examined this patient [id number] and my medical decision-making was reviewed with Dr. Yung Baird, Resident Physician. I agree with the documented findings, disposition and treatment plan as described except to the extent set forth below. Please see my progress notes for details. 47-year-old female presents to the emergency room for evaluation of headache, chest pain, tingling sensation across her bilateral lower extremities. Patient similar symptoms to this once earlier this year in November. She is diagnosed with a TIA. She was discharged home is been following up with her primary care provider. She is also had intermittent palpitations. She was started on blood pressure medication and a loop recorder was placed. Patient is been seen and evaluated by cardiology at this facility as well as up at [facility]. She follows up closely with her primary care provider. She does have a significant family history of cardiac related disease and illness. Patient's initial EKG is unremarkable. We saw the patient approximately one hour and 20 minutes after arrival here to the emergency room secondary to bed availability. She said that the pain is almost completely resolved at this point. Her EKG is reviewed by myself and does not show any acute changes or issues at this time. Morphology is stable as well as intervals looking normal. Patient will be provided with pain medication aspirin CT imaging the head chest x-ray CBC chemistry troponin and then discussion for admission will be completed. Urinalysis and urine test will be added on. I discussed the test with the patient she has had a hysterectomy so that will be canceled at this time. Patient's physical exam is otherwise unremarkable. Head is atraumatic. Pupils are equal and reactive. Extraocular muscles are intact. Oropharynx is patent mucous membranes are moist. Trachea is midline. Lungs are clear to auscultation bilaterally. Heart is regular with no murmurs. Abdomen is soft nontender nondistended with no guarding no rigidity and no peritoneal symptoms. Extremities appear to be normal. No visible neurologic symptoms or deficits noted on exam. Cranial nerves III through XII are grossly intact. No cerebellar function issues at this time. Disposition to be determined. See detailed documentation of the physical exam, medical intervention, medical decision-making, disposition and the resident physician's note. No critical care provider the patient's treatment course at this time. 1915 Patient had complete resolution the symptoms while here in the emergency room. Unknown whether it was secondary to the nitroglycerin that was given or just time. Labs otherwise unremarkable and her EKG is stable. Thyroid function testing appears to be normal. Disposition will be admission secondary to risk factors including significant family history of early cardiac disease as well as multiple evaluations the outpatient setting but no true etiology noted. Hospitalist was contacted. No other recommendations concerns or issues noted at this point. Aspirin here in the emergency room. Admission process will be completed this time. Patient will be observed here in the emergency room until admission process has been established
[2018-05-04] MEDS ORDERED: Naloxone 0.4 MG/ML INJ IVP PRN (20:17)
--- NOTE | 2018-05-04 20:39 | Internal Med History&Physical ---
Date of Encounter: 05/04/18 Time of Encounter: 20:21 Internal Medicine - H&P: HPI Chief complaint: Chest Pain/Numbness History of present illness: Ms. Jack is a 47 year old female with past medical history of asthma, fibromyalgia, celiac disease, hypertension, hyperlipidemia and TIA who presents to the ED for evaluation of headache, chest pain, tingling sensation across her bilateral lower extremities. Patient had similar symptoms earlier this year in November and at that time was diagnosed with possible TIA. She was discharged home is been following up with her PCP. She was started on blood pressure medication and a loop recorder was placed. Patient is been seen and evaluated by cardiology at this facility as well as up at [facility]. She follows up closely with her primary care provider. She does have a significant family history of cardiac related disease and illness. Patient's initial EKG is unremarkable. Approximately one hour and 20 minutes after arrival the pain is almost completely resolved. Her EKG does not show any acute changes or issues at this time. With regard to her numbness, she states that she began experiencing pins and needle sensation in her left thigh which then radiated down to her leg. Shortly thereafter numbness spread to involve her left arm and left face and then across to her right leg as well. She denies any weakness, headache, dizziness, lightheadedness, fever, chills, nausea, vomiting or diarrhea. Past Med Surg Social Fam HX - Past Medical History Medical history: arthritis, asthma, fibromyalgia, TIA Psychiatric history: no psych history - Past Surgical History Surgical History: Additional surgical history: Loop Recorder (January 2018) - Social History Smoking Status: Never smoker Smokeless Tobacco Status: No Alcohol use: none Drug use: none - Family History Mother Living Status: Hx Family Cancer: Yes Father Living Status: Cause of : [place] Hx Family Cardiac Disorders: Yes (CHF) Hx Family Endocrine Disorder: Yes (DM) Internal Medicine - H&P: Meds Atorvastatin Calcium [Lipitor] 20 mg PO QPM 05/04/18 [History] Metoprolol [Lopressor] 25 mg PO BID 05/04/18 [History] Allergy/AdvReac Type Severity Reaction Status Date / Time Diclofenac Allergy Vomiting Verified 05/04/18 15:39 aspirin [ASA] AdvReac Nausea Verified 05/04/18 15:39 All Systems PM: A 10-system review of systems was performed and is negative for pertinent findings except as documented above in the HPI. - Constitutional Constitutional: no chills, no fever(s), no night sweats - EENT Eyes: no change in vision, no discharge, no pain, no photophobia Ears: no ear discharge, no ear pain, no tinnitus Nose, mouth and throat: no dysphagia, no nasal discharge, no neck pain, no sore throat - Cardiovascular Cardiovascular ROS IM: no chest pain, no diaphoresis, no dyspnea, no lightheadedness, no palpitations, no syncope - Respiratory Respiratory: no cough, no dyspnea, no wheezing, no excessive phlegm production - Gastrointestinal Gastrointestinal: no abdominal pain, no diarrhea, no hematemesis, no hematochezia, no melena, no nausea, no vomiting - Genitourinary Genitourinary: no change in urinary stream, no dysuria, no flank pain, no hematuria - Musculoskeletal Musculoskeletal ROS IM: no numbness, no tingling - Integumentary Integumentary IM: no rash, no unusual bruising - Neurological Neurological ROS: no confusion, no convulsions, no focal weakness, no numbness, no tingling, no tremor(s) - Hematologic/Lymphatic Hematologic/Lymphatic: no easy bruising - Constitutional Vitals: Temp Pulse Resp BP Pulse Ox 98 F 69 16 115/75 97 05/04/18 20:09 05/04/18 20:09 05/04/18 20:09 05/04/18 20:09 05/04/18 20:09 Exam: General: Alert and oriented Skin:Normal color, no rash, no lesions. HEENT:EOM, pupils equal, round and reactive. Cardiovascular:Normal S1 & S2, no rubs, murmurs or gallops. No JVD. Pulse regul ar. Lungs:Normal breath sounds, no wheezes or crackles. Abdomen:Soft, non-tender, no rigidity. Extremities:No deformity, no edema or tenderness, no joint swelling or clubbing. Neurological:Normal cognition and cranial nerves II through XII intact; motor strength 5 out of 5 in the upper extremities and lower extremities. Sensation intact. No dysmetria or pronator drift. Pulses:Carotid and radial pulses normal +2. Rest of the physical exam is non contributory Internal Med - H&P Results - Labs CBC & Chem 7: 05/05/18 03:24 05/05/18 03:24 Labs: Short CBC 05/04/18 Range/Units 16:09 WBC 6.2 (4.3-11.1) K/mcL Hgb 13.8 (11.5-15.4) g/dL Hct 40.4 (35.3-44.9) % Plt Count 212 (140-400) K/mcL Neutrophils # 3.3 (1.6-8.9) K/mcL BMP 05/04/18 16:09 Sodium 140 Potassium 4.0 Chloride 104 Carbon Dioxide 28 BUN 13 Creatinine 0.84 Glucose 97 Calcium 9.1 Cardiac Enzymes 05/04/18 Range/Units 16:09 Troponin I < 0.03 (< 0.04) ng/mL Urine 05/04/18 Range/Units 17:07 Urine Color Yellow (Yellow) Urine Clarity Clear (Clear) Urine pH 6.5 (5.0-8.0) pH Units Ur Specific [place] 1.005 L (1.010-1.025) Urine Protein Negative (Neg-Trace) mg/dL Urine Glucose (UA) Normal (Normal) mg/dL - Impressions ITS Impressions Chest X-Ray 05/04/18 15:52 IMPRESSION: No acute findings. D/ / 05/04/2018 16:20:46 Ramon Brar MD / barb Interpreting Provider: Ramon Brar MD Head CT 05/04/18 16:17 IMPRESSION: No acute intracranial abnormality. D/ / Jaime Lopez MD / Jaime Lopez MD Interpreting Provider: Jaime Lopez MD - Assessment and plan (1) Chest pain Status: Acute Assessment and plan: Atypical chest pain. Risk factors include hypertension, hyperlipidemia. Patient had stress echocardiography in January of this year which showed negative for ischemia. Initial troponin negative. EKG shows no ST or T-wave changes and is similar to previous EKG. Low suspicion for acute coronary syndrome. Jennifer ent is currently on metoprolol and atorvastatin and is being followed closely by Dr. Aguilar as an outpatient who is aware of her intermittent chest pain. At this time given her recent workup and exercise stress testing would recommend observation, trending her troponin and have her follow-up as an outpatient with her inside sales consultant. Continue cardiac telemetry Trend troponin Qualifiers: Chest pain type: unspecified Qualified Code(s): R07.9 - Chest pain, unspecified (2) Left sided numbness Status: Acute Assessment and plan: Left-sided numbness of unclear etiology. Her symptoms do not appear to be consistent with TIA as the numbness seemed to progress from the left side to the right side of her body. She has no other focal deficits. Patient CT scan of the head was unremarkable and patient had an MRI back in November which showed no evidence of ischemic changes. She did not receive aspirin because of her reported allergy to aspirin. Would consider neurology evaluation at this point. (3) Elevated TSH Status: Acute Assessment and plan: Elevated TSH of greater than 9. Patient does not report any symptoms suggestive of hypothyroidism. No reports of any recent flulike symptoms or cold. She did endorse some tenderness on the right side of her neck. We will obtain free T3 and T4. Patient has reported workup for her abnormal TSH in the past and seemed to resolve on its own without any further intervention. (4) Hypertension Status: Acute Qualifiers: Hypertension type: unspecified Qualified Code(s): I10 - Essential (primary) hypertension (5) Hyperlipidemia Status: Acute Qualifiers: Hyperlipidemia type: unspecified Qualified Code(s): E78.5 - Hyperlipidemia, unspecified (6) DVT prophylaxis Status: Acute Assessment and plan: Subcutaneous heparin - Time Spent With Patient Total time spent is greater than 50% in coordination of care (as documented) at patient's floor/unit and/or counseling patient:
[2018-05-05 04:08] LABS: Basophils % 0.5 %; Eosinophils # 0.1 K/mcL (0.0-0.6); Eosinophils % 1.5 %; Hematocrit 41.6 % (35.3-44.9); Immature Granulocytes % 0.2 % (0-4); Lymphocytes # 3.1 K/mcL (0.6-4.6); Lymphocytes % 46.7 %; Mean Corpuscular HGB Conc 33.7 g/dL (31.6-35.5); Mean Corpuscular Volume 92.2 fL (83.0-100.0); Mean Platelet Volume 11.6 fL (9.4-12.4); Monocytes # 0.5 K/mcL (0.0-1.3); Monocytes % 7.3 %; Neutrophils # 2.9 K/mcL (1.6-8.9); Platelet Count 179 K/mcL (140-400); Red Blood Count 4.51 M/mcL (3.82-4.97); Red Cell Distribution Width 12.6 % (11.5-14.5); Segmented Neutrophils % 43.8 %
[2018-05-05 04:32] LABS: Troponin I < 0.03 ng/mL (< 0.04)
[2018-05-05 04:51] LABS: Potassium 3.8 mEq/L (3.5-5.1)
[2018-05-05 04:52] LABS: Alanine Aminotransferase 11 Units/L (7-52); Albumin 3.7 g/dL (3.5-5.7); Albumin/Globulin Ratio 1.4 (1.1-2.2); Alkaline Phosphatase 68 Units/L (34-104); Aspartate Amino Transferase 23 Units/L (13-39); BUN/Creatinine Ratio 18 (6-26); Bilirubin,Total 0.4 mg/dL (0.3-1.0); Blood Urea Nitrogen 16 mg/dL (6-20); Calcium 8.6 mg/dL (8.6-10.3); Carbon Dioxide 24 mEq/L (23-29); Chloride 107 mEq/L (98-107); Globulin 2.6 g/dL (2.4-3.5); Glucose 87 mg/dL (70-105); Osmolality,Calculated 289 (280-300); Sodium 139 mEq/L (136-145); Total Protein 6.3 g/dL (6.4-8.9); eGFR For Non-African Americans > 60 (> 60)
[2018-05-05] MEDS ORDERED: *HR* Heparin 5,000 UNIT/ML VIAL SQ SCH (07:45)
[2018-05-05 11:32] VITALS: BP 119/75
--- NOTE | 2018-05-05 12:46 | Neurology - Consult Note ---
Date of Encounter: 05/05/18 Time of Encounter: 12:46 Assessment and Plan (1) Migraine equivalent syndrome Current Visit: Yes Status: Acute At this juncture I am absolutely convinced that these episodes are not due to transient ischemia. Based on all the facts that I stated in the history of present illness none of her neuroimaging studies have been abnormal or show any evidence of previous ischemia. Essentially all of her spells present with some visual phenomena, dizziness, as well as paresthesias of the left hemisensory normal. Plus or minus headache. It would also not be typical of ischemia for her deficits to involve over a period of time. Generally with a stroke or TIA symptoms are sudden and maximal at onset. Also her sensory symptoms seemed to also involve the right side of the head was somewhat this time. I could also not explain this on a basis of a single vessel ischemic brain lesion. Patient states that she was told that her thyroid might be implicated here. I am not so convinced. I would simply recommend perhaps starting her on a baby aspirin, and continue her statin therapy. You may discharge her at your discretion. History of Present Illness HPI: The chart was reviewed, the patient was seen and examined. Clarissa upton is a very pleasant 47-year-old woman who has had several neuroimaging scans as well as hospital and emergency room admissions for symptoms of dizziness, headache, associated with left sided paresthesias. I most recently saw her back in November 2017 for the exact same problem which occurred in the exact same setting. 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 Again this time she was in the process of evaluating a patient where she suddenly experienced dizziness, and paresthesias which started in the left leg. Over a period of minutes the paresthesias evolved to include the left arm, the left face, and then the right upper and lower extremity. She did have a headache this time which she rates as a 6 out of 10. She denied photophobia or nausea. She admits however that she has been previously treated for migraine headaches. When I saw her the last time this past November I felt that the likelihood of TIA was low considering her age and the fact that she really does not have any risk factors. Also the fact that all of her neuroimaging studies have been normal including MRI scan of the brain completed at the time of her last admission, multiple MRI previous MRI scans of the brain dating back to 2005 WHICH have been normal, also at the time of her last admission she had CTA of the head and neck both of which were normal. Her symptoms have all resolved over the last 24 hours. Past Med Surg Social Fam HX - Past Medical History Medical history: arthritis, asthma, fibromyalgia, TIA Psychiatric history: no psych history - Past Surgical History Surgical History: Additional surgical history: Loop Recorder (January 2018) - Social History Smoking Status: Never smoker Smokeless Tobacco Status: No Alcohol use: none Drug use: none - Family History Mother Living Status: Hx Family Cancer: Yes Father Living Status: Cause of : [place] Hx Family Cardiac Disorders: Yes (CHF) Hx Family Endocrine Disorder: Yes (DM) Medications and Allergies Atorvastatin Calcium [Lipitor] 20 mg PO QPM 05/04/18 [History] Metoprolol [Lopressor] 25 mg PO BID 05/04/18 [History] Allergy/AdvReac Type Severity Reaction Status Date / Time Diclofenac Allergy Vomiting Verified 05/04/18 15:39 aspirin [ASA] AdvReac Nausea Verified 05/04/18 15:39 All Systems: The remainder of the systems were reviewed and are negative Review of Systems: The balance of the systems review is negative. Physical Examination - Vital Signs Vital Signs: Initial Vital Signs Temp Pulse Resp BP Pulse Ox 98.3 F 72 18 161/97 98 05/04/18 15:39 05/04/18 15:39 05/04/18 15:39 05/04/18 15:39 05/04/18 15:39 - Neurologic Detailed motor examination: full strength in all major muscle groups Motor examination - right side: 5/5: deltoids, biceps, triceps, wrist flexion, wrist extension, street contractor, hip flexors, tibialis Anterior, quadriceps, toe extension (EHL), plantarflexion Motor examination - left side: 5/5: deltoids, biceps, triceps, wrist flexion, wrist extension, hip flexors, street contractor, quadriceps, tibialis Anterior, toe extension (EHL), plantarflexion Mental Status Examination: awake, alert, oriented to person, oriented to place, oriented to time, follows commands appropriately, answers questions appropriately, no agnosia, no aphasia, no aproxia Cranial nerve examination: PERRL, EOMI, visual rodrigez intact, corneal reflexes brisk symmetrically, sensory to face intact, mastication intact, no facial asy mmetry is present, no dysarthria, hearing is intact symmetrically, soft palate elevates bilaterally upon phonation, gag reflex intact, flexes SCM and trapezius muscles symmetrically with full power, tongue protrudes midline, no atrophy or facial fasiculations present Cerebellar examination: no dysmetria, performs finger to nose and heel to nelson symmetrically without ataxia, no gait ataxia, no truncal ataxia, no difficulty with rapid alternating movements Results - Laboratory Findings CBC and BMP: 05/05/18 03:24 05/05/18 03:24 Abnormal lab findings: Abnormal lab results Serum Total Protein 6.3 g/dL (6.4-8.9) L 05/05/18 03:24 TSH 9.135 mcIU/mL (0.340-5.600) H 05/04/18 16:09 Free T3 4.00 pg/mL (2.50-3.90) H 05/05/18 03:24 Ur Specific [place] 1.005 (1.010-1.025) L 05/04/18 17:07 Ur Leukocyte Esterase Moderate (Negative) H 05/04/18 17:07 Urine Microscopic WBC 3-5 per hpf (0-3) H 05/04/18 17:07 Ur Squamous Epith Cells Many per lpf (None-Few) H 05/04/18 17:07 Ur Culture Indicated? NO. (NO) A 05/04/18 17:07 Consult Discharge Plan - Plan Referrals: Tay Contreras MD [Primary Care Provider] -
--- NOTE | 2018-05-05 14:52 | Discharge Summary ---
Orders not resulted at time of discharge: Pending orders 05/04/18 15:52 ECG 12 lead ECG [ECG] Stat Date of Encounter: 05/05/18 Time of Encounter: 11:00 - Discharge Diagnosis (1) Chest pain Priority: Primary Status: Acute Qualifiers: Chest pain type: unspecified Qualified Code(s): R07.9 - Chest pain, unspecified (2) Left sided numbness Priority: Primary Status: Acute (3) Hypertension Priority: Primary Status: Acute Qualifiers: Hypertension type: unspecified Qualified Code(s): I10 - Essential (primary) hypertension (4) Hyperlipidemia Priority: Secondary Status: Acute Qualifiers: Hyperlipidemia type: unspecified Qualified Code(s): E78.5 - Hyperlipidemia, unspecified (5) Elevated TSH Priority: Secondary Status: Acute Hospital course: Patient is a 47-year-old female with past medical history significant for asthma, fibromyalgia, celiac disease, hypertension, hyperlipidemia and TIA who presents to the ER for evaluation chest pain and altered sensation in bilateral lower extremities. Patient was admitted to medical surgical floor for observation and further management. Hospital stay ACS was ruled out as cardiac biomarkers were negative. Neurology was consulted and did not suspect patient had TIA or CVA. Patient will be discharged to follow up with primary care provider as an outpatient. - Time Spent with Patient Total time spent providing and/or coordinating discharge services: - Discharge Medications Home Medications: Atorvastatin Calcium [Lipitor] 20 mg PO QPM 05/04/18 [History] Metoprolol [Lopressor] 25 mg PO BID 05/04/18 [History] Allergies/Adverse Reactions: Allergy/AdvReac Type Severity Reaction Status Date / Time Diclofenac Allergy Vomiting Verified 05/04/18 15:39 aspirin [ASA] AdvReac Nausea Verified 05/04/18 15:39 Date of admission: 05/04/18 19:32 Primary care physician: Tay Contreras MD Consults: 05/04/18 21:32 Consult to Neurology [CONS] Routine Consulting Provider: [facility] Reason for Consult: Generalized Numbness Call Completed: No - Constitutional Vitals: Temp Pulse Resp BP Pulse Ox 98.5 F 62 16 119/75 97 05/05/18 11:31 05/05/18 11:31 05/05/18 11:31 05/05/18 11:31 05/05/18 11:31 Exam: General: Alert and oriented Skin:Normal - Patient Status Disposition: Left Against Medical Advice Condition: Fair - Discharge Instructions Follow Up With: Tay Contreras MD [Primary Care Provider] -
--- NOTE | 2018-05-11 09:48 | Electrocardiograph Report ---
[address] [address] Test Date: 2018-05-04 Pat Name: Clarissa Jack Department: EXAM21 Room: 3B33 Gender: F [employer]: : 1970 Requested By: Yung Baird Order Number: [id number] Reading MD: Myles Ann Measurements Intervals [place] Rate: 76 P: 28 NH: 117 QRS: 19 QRSD: 93 T: 62 QT: 422 QTc: 475 Interpretive Statements Sinus rhythm Borderline short NH interval Nonspecific ST-T changes Electronically Signed On 05-11-2018 9:47:31 EDT by Myles Ann
== END 2018-05-05 14:53 | disposition left against medical advice (07) ==
LOC: EMEROOARM 15:22 → 3BNU 15:22 → SUATTDRO 19:32 → 3BNU 19:58
PROVIDERS: ADMIT Internal Medicine; ATTEND Hospitalist

== ENCOUNTER 2020-07-15 11:14 | Observation (INO) ==
[2020-07-15] MEDS ORDERED: Isovue-370 500 ML BOTTLE IVP ONE ×2 (11:26→11:27)
[2020-07-15 11:47] LABS: Hematocrit 45.6 % (35.3-44.9); Hemoglobin 15.6 g/dL (11.5-15.4); Mean Corpuscular HGB Conc 34.2 g/dL (31.6-35.5); Mean Corpuscular Hemoglobin 31.9 pg (28.0-33.3); Mean Corpuscular Volume 93.3 fL (83.0-100.0); Mean Platelet Volume 10.5 fL (9.4-12.4); Platelet Count 231 K/mcL (140-400); Red Blood Count 4.89 M/mcL (3.82-4.97); Red Cell Distribution Width 12.1 % (11.5-14.5); White Blood Count 6.8 K/mcL (4.3-11.1)
[2020-07-15 11:52] LABS: BUN/Creatinine Ratio 20 (6-26); Blood Urea Nitrogen 17 mg/dL (6-20); Calcium 9.2 mg/dL (8.6-10.3); Carbon Dioxide 26 mEq/L (23-29); Chloride 102 mEq/L (98-107); Glucose 89 mg/dL (70-105); Osmolality,Calculated 283 (280-300); Potassium 3.5 mEq/L (3.5-5.1); Sodium 136 mEq/L (136-145); eGFR For African Americans > 60 (> 60); eGFR For Non-African Americans > 60 (> 60)
[2020-07-15 11:54] LABS: Troponin I < 0.03 ng/mL (< 0.04)
[2020-07-15] MEDS ORDERED: Acetaminophen 325 MG TABLET PO PRN (13:55)
[2020-07-15] MEDS ORDERED: Naloxone 0.4 MG/ML INJ IVP PRN (13:55)
[2020-07-15] MEDS ORDERED: Nitroglycerin 0.4 MG TAB.SUBL SL PRN (20:12)
[2020-07-16 07:50] LABS: Cholesterol 240 mg/dL (< 200); HDL Cholesterol 48 mg/dL (40-59); LDL Cholesterol,Calculated 174 mg/dL (< 100); Triglycerides 91 mg/dL (< 150)
[2020-07-16 08:42] VITALS: BP 116/80
[2020-07-16] MEDS ORDERED: Aspirin 81 MG TAB.CHEW PO SCH (09:00)
[2020-07-16 09:20] LABS: Troponin I < 0.03 ng/mL (< 0.04)
[2020-07-16 09:47] LABS: Estimated Average Glucose 111 mg/dl; Hemoglobin A1C 5.5 %
[2020-07-19] MEDS ORDERED: ESTRADIOL 0.025 MG/24 HR TP SCH (09:00)
== END 2020-07-16 11:39 | disposition home or self-care (01) ==
LOC: 3BNU 11:14 → EMEROOARM 11:14 → SUATTDRO 12:59 → 3BNU 14:12
PROVIDERS: ADMIT Internal Medicine; ATTEND Internal Medicine

== ENCOUNTER 2021-01-28 11:21 | Observation (INO) ==
[2021-01-28 11:56] LABS: Basophils % 0.3 %; Eosinophils % 0.5 %; Hematocrit 44.9 % (35.3-44.9); Hemoglobin 15.3 g/dL (11.5-15.4); Immature Granulocytes % 0.3 % (0-4); Lymphocytes # 2.2 K/mcL (0.6-4.6); Lymphocytes % 28.7 %; Mean Corpuscular HGB Conc 34.1 g/dL (31.6-35.5); Mean Corpuscular Hemoglobin 32.3 pg (28.0-33.3); Mean Corpuscular Volume 94.7 fL (83.0-100.0); Mean Platelet Volume 10.8 fL (9.4-12.4); Monocytes # 0.4 K/mcL (0.0-1.3); Monocytes % 5.2 %; Platelet Count 221 K/mcL (140-400); Red Blood Count 4.74 M/mcL (3.82-4.97); Red Cell Distribution Width 12.5 % (11.5-14.5); White Blood Count 7.7 K/mcL (4.3-11.1)
[2021-01-28] MEDS ORDERED: Isovue-370 500 ML BOTTLE IVP ONE (11:58)
[2021-01-28] MEDS ORDERED: Aspirin 325 MG TABLET PO ONE (12:00)
[2021-01-28 12:18] LABS: BUN/Creatinine Ratio 14 (6-26); Blood Urea Nitrogen 12 mg/dL (6-20); Calcium 9.5 mg/dL (8.6-10.3); Carbon Dioxide 29 mEq/L (23-29); Chloride 104 mEq/L (98-107); Glucose 89 mg/dL (70-105); Osmolality,Calculated 291 (280-300); Potassium 3.5 mEq/L (3.5-5.1); Sodium 141 mEq/L (136-145); Troponin I < 0.03 ng/mL (< 0.04); eGFR For African Americans > 60 (> 60); eGFR For Non-African Americans > 60 (> 60)
[2021-01-28] MEDS: Nitroglycerin 0.4 MG TAB.SUBL SL SCH ×2 (12:21→15:50)
[2021-01-28] MEDS ORDERED: Acetaminophen 325 MG TABLET PO PRN (14:39)
[2021-01-28] MEDS ORDERED: Melatonin 3 MG TABLET PO PRN (14:39)
[2021-01-28] MEDS ORDERED: Ondansetron 4 MG/2 ML VIAL IVP PRN (14:39)
[2021-01-28] MEDS ORDERED: Naloxone 0.4 MG/ML INJ IVP PRN (14:39)
[2021-01-29 04:21] VITALS: TEMP 97.8
[2021-01-29] MEDS ORDERED: Regadenoson 0.4 MG/5 ML SYRINGE IVP ONE (06:53)
[2021-01-29 09:39] VITALS: BP 140/91; PULSE 81; O2SAT 100
== END 2021-01-29 12:38 | disposition home or self-care (01) ==
LOC: EMEROOARM 11:21 → 3BNU 11:21 → SUATTDRO 14:17 → 3BNU 15:12
PROVIDERS: ADMIT Internal Medicine; ATTEND Registered Nurse